=== PATIENT | male | born 1965 | race Hispanic/Latino ===

== ENCOUNTER 2022-04-23 08:04 | Outpatient (CLI) | payer BC | END 2022-04-23 08:05 | disposition home or self-care (01) | LOC: CSHMRI 08:04 | PROVIDERS: ATTEND Orthopaedic Surgery | DX: S83.242A Other tear of medial meniscus, current injury, left knee, initial encounter (principal); M17.12 Unilateral primary osteoarthritis, left knee; M84.462A Pathological fracture, left tibia, initial encounter for fracture; M23.301 Other meniscus derangements, unspecified lateral meniscus, left knee ==